=== PATIENT | female | born 1985 | race Caucasian/White ===

== ENCOUNTER 2021-05-24 13:05 | Emergency (ER) | payer OTHER ==
[~2021-05-24] VITALS: Ht 157.5 cm; Wt 54.5 kg
[~2021-05-24 13:05] MED LIST: NOCURR
[2021-05-24 14:05] VITALS: BP 146/92
== END 2021-05-24 15:14 | disposition home or self-care (01) ==
LOC: EMS 13:17
DX: R21 Rash and other nonspecific skin eruption (principal); F17.210 Nicotine dependence, cigarettes, uncomplicated; F12.90 Cannabis use, unspecified, uncomplicated; Z88.0 Allergy status to penicillin
CPT/HCPCS: 99282; Z7502